=== PATIENT | male | born 1940 | race Caucasian/White ===

== ENCOUNTER 2018-02-08 17:11 | Inpatient (IN) | payer MEDICARE, OTHER ==
[~2018-02-08] VITALS: Ht 177.8 cm; Wt 74.8 kg
[2018-02-08 17:18] VITALS: BP 177/76
[2018-02-08] MEDS ORDERED: XANAX 0.25 MG0.25 MG PO (17:41)
[2018-02-08] MEDS ORDERED: CHLORTABS4 MG PO (17:43)
[2018-02-08] MEDS ORDERED: UNICOMPLEX M TA1 TA1 PO (17:43)
[2018-02-08 17:59] LABS: ABSOLUTE EOSINOPHILS 0.1 thou/uL (0.0-0.7); ABSOLUTE LYMPHOCYTES 0.6 thou/uL (0.8-5.3); ABSOLUTE MONOCYTES 0.4 thou/uL (0.0-1.2); ABSOLUTE NEUTROPHILS 3.4 thou/uL (1.6-8.1); BASOPHILS 0.6 %; EOSINOPHILS 3.2 %; HEMATOCRIT 26.2 % (42.0-52.0); HEMOGLOBIN 9.2 gm/dL (14.0-18.0); LYMPHOCYTES 12.5 %; MCH 33.2 pg (26.0-34.0); MCHC 35.3 g/dL (28.0-37.0); MCV 94.1 fL (80.0-100.0); NUCLEATED RBCS 0 /100WBC; PLATELET COUNT* 162 thou/uL (150-400); POLYS 74.7 %; RBC 2.79 mil/uL (4.50-6.00); RDW-CV 14.9 % (10.5-14.5); WBC 4.6 thou/uL (4.0-11.0)
[2018-02-08 18:07] LABS: ANION GAP 5 mmol/L (7-16); BUN 29 mg/dL (7-18); CALCIUM 9.2 mg/dL (8.5-10.1); CHLORIDE 106 mmol/L (98-107); CO2 28 mmol/L (21-32); CREATININE 1.1 mg/dL (0.6-1.3); GLUCOSE 104 mg/dL (70-99); POTASSIUM 4.5 mmol/L (3.5-5.1); SODIUM 139 mmol/L (136-145)
[2018-02-08 18:17] LABS: ALBUMIN 4.3 g/dL (3.4-5.0); ALKALINE PHOSPHATASE 64 U/L (46-116); SGOT 36 U/L (15-37); SGPT 28 U/L (30-65); TOTAL BILIRUBIN 2.9 mg/dL (<0.1-1.0); TOTAL PROTEIN 7.6 g/dL (6.4-8.2); TROPONIN-I LEVEL <0.06 ng/mL (<0.06)
[2018-02-08 20:12] VITALS: BP 162/72
[2018-02-08 20:30] VITALS: BP 162/73
[2018-02-08 23:00] LABS: URINE BILIRUBIN NEGATIVE (Negative); URINE BLOOD NEGATIVE (Negative); URINE CLARITY CLEAR; URINE COLOR YELLOW; URINE GLUCOSE-RANDOM NEGATIVE (Negative); URINE KETONES NEGATIVE (Negative); URINE LEUKOCYTES-REFLEX NEGATIVE (Negative); URINE NITRITE-REFLEX NEGATIVE (Negative); URINE PROTEIN NEGATIVE (Negative); URINE SPECIFIC GRAVITY 1.015 (1.005-1.030)
[2018-02-09] VITALS: BP 125/60
[2018-02-09 04:00] VITALS: BP 120/61
--- NOTE | 2018-02-09 04:33 | NUR ---
RECEIVED REPORT FROM ER NURSE, NADEEM, RN AT 1999. PT ARRIVED TO UNIT AT 2024. PT AAOX4, SPOUSE AT [facility], ORIENTED TO ROOM AND CALL LIGHT. INITIAL [facility] SCORE ZERO. PASSED BEDSIDE SWALLOW STUDY. SPOKE TO DR. OSEI AT 2130 IN REGARDS TO PATIENTS MRI/MRA ORDERS. OK TO DO IN AM PER DR. OSEI. PT VOICED NO CONERNS THIS SHIFT, FALL PRECAUTIONS IN PLACE, CALL LIGHT WITHIN REACH.
[2018-02-09 05:33] LABS: ALBUMIN 3.5 g/dL (3.4-5.0); ALKALINE PHOSPHATASE 51 U/L (46-116); BUN 26 mg/dL (7-18); CALCIUM 8.4 mg/dL (8.5-10.1); CHOLESTEROL 103 mg/dL (<200); CO2 26 mmol/L (21-32); CREATININE 1.2 mg/dL (0.6-1.3); GLUCOSE 88 mg/dL (70-99); HDL CHOLESTEROL 35 mg/dL (>40); LDL CHOLESTEROL 56 mg/dL (<100); LIPASE 265 U/L (73-393); SGOT 17 U/L (15-37); SGPT 25 U/L (30-65); TC:HDL 2.9 Ratio (Not establshd); TOTAL BILIRUBIN 2.1 mg/dL (<0.1-1.0); TOTAL PROTEIN 5.8 g/dL (6.4-8.2); TRIGLYCERIDE 60 mg/dL (<150); VLDL 12 mg/dL (<40)
[2018-02-09 06:30] LABS: ANION GAP 7 mmol/L (7-16); CHLORIDE 108 mmol/L (98-107); SERUM ASSESSMENT CLEAR; SODIUM 141 mmol/L (136-145)
[2018-02-09 08:00] VITALS: BP 137/69
--- NOTE | 2018-02-09 08:52 | NUR ---
ASSUMED PT CARE AT 0730, FULL ASSESMENT DONE CHARTED.PT A/O X4, HAS WEBSTER RATES IT AT 310. PT WAS GIVEN TYLENOL THIS AM. VSS, SR ON THE MONITOR. PT UP TO CHAIR FOR BREAKFAST, USES A WALKER TO AMBULATE. MRI ORDERED LAST NIGHT WILL FOLLOW UP IF MRI WILL BE TODAY. PT EDUCATED ON PLAN OF CARE.
[2018-02-09 11:30] VITALS: BP 137/71
--- NOTE | 2018-02-09 12:24 | EKG ---
[place] [address] ELECTROCARDIOGRAM REPORT Name: MARIA DEL CARMEN,HILARIA L Room: [address] ADM IN ..#: [id number] Admission: 02/08/18 Attend Phys: Margarita Albrecht Discharge: Date of : 42 Report #: [id number] THIS REPORT FOR: //name// [facility] ED Test Date: 2018-02-08 Test Time: 17:38:51 Pat Name: HILARIA JOYCE Department: Room: [facility] Gender: M Loader Machine: Jayden LYNN : 1940 Requested By: German James Order Number: [id number] MD: Jose Maria Caruso Measurements Intervals [place] Rate: 67 P: 62 PA: 142 QRS: 47 QRSD: 102 T: 65 QT: 412 QTc: 435 Interpretive Statements Sinus rhythm RSR' in V1 or V2, right VCD or RVH Compared to ECG 12/20/2008 19:01:15 Right ventricular hypertrophy now present RSR' in V1 or V2 now present Electronically Signed On 02-09-2018 12:24:21 CDT by Jose Maria Caruso [email or web address] <ELECTRONICALLY SIGNED> By: Jose Maria Caruso MD, FAC 02/09/18 1224 1738 1738 Jose Maria Caruso MD, FAC /EPI
[2018-02-09] MEDS ORDERED: ASPIR 8181 MG PO (16:12)
[2018-02-09] MEDS ORDERED: ASPIRIN325 PO (16:13)
[2018-02-09] MEDS ORDERED: LIPITOR10 MG PO (16:18)
[2018-02-09 16:21] VITALS: BP 137/71
[2018-02-09 16:46] VITALS: BP 137/71
--- NOTE | 2018-02-09 16:47 | NUR ---
CM SPOKE TO THE PATIENT TO DISCUSS HOME SITUATION, DISCHARGE PLANNNING, AND TO INFORM OF THE ROLE OF CM. PATIENT ALERT, ORIENTED, AND INDEPENDENT WITH ADL'S. PATIENT NORMALLY ACTIVE AND INDEPENDENT. PATIENT RESIDES AT HOME WITH SPOUSE AND SHE IS ABLE TO ASSIST NEEDED. PATIENT OWNS A WALKER AND CANE, BUT ONLY USED THE CANE FOR MOBILITY. PATIENT HAS NO HX OF HH OR SNF. CM WILL REMAIN AVIALABLE TO ASSIST AND FOLLOW NEEDED.
--- NOTE | 2018-02-09 16:50 | NUR ---
CM WAS INFORMED BY NURSING THAT THE PATIENT WOULD D/C WITH HH. CM SPOKE TO THE PATIENT TO DISCUSS CHOICE OF HH, AND HE CHOSE [facility]. CM CONTACTED [facility] AND SPOKE TO JAZLYN TO INFORM OF THE REFERRAL AND FAXED PATIENT CLINICAL INFO TO [facility]. CM WILL REMAIN AVAILABLE TO ASSIST AND FOLLOW.
[2018-02-10 02:05] LABS: GLYCOHEMOGLOBIN (HGB A1C) 4.6 % (4.8-5.6)
--- NOTE | 2018-02-19 17:26 | CON ---
[address] [address] CONSULTATION Name: HILARIA JOYCE Karrie Room: [address] IN M.R.#: [id number] Admission: 02/08/18 Attend Phys: Margarita Albrecht Discharge: 02/09/18 Date of : 42 Report #: [id number] THIS REPORT FOR: //name// CC: NAYAN physician/PCP Guillermo Brown DATE OF SERVICE: 02/09/2018 HISTORY OF PRESENT ILLNESS: This is a 77-year-old male patient who was evaluated by me for an episode of loss of vision in the left eye. It came spontaneously. There was no pain associated with this. The symptoms resolved spontaneously. He had another episode about 2-3 months ago, which was similar. He had a lens implant about 6 years ago in that eye and he thought it was because of that and he did not seek any medical attention. These symptoms happened spontaneously and there was no associated trauma. REVIEW OF SYSTEMS: Indicate that he has been diagnosed with ophthalmic migraine. He does have some headache. Headaches are in the occipital area. Those are longstanding headache. He has been diagnosed with migraine, but I am not certain whether it is real migraine or ophthalmic migraine. He does not have symptoms suggestive of temporal arteritis. He does have some baseline difficulty with walking, which has been attributed to his inner ear. He does have a history of anemia. He has seen a back end web developer and they indicated that anemia is of unknown origin. His bilirubin is high, but again that is also his baseline. His LDL is only 56, but his HDL is also only 35. Presently, he feels back to the baseline and wants to go home. He does not have any new cardiac, respiratory, GI, , musculoskeletal, constitutional, dermatological, hematological, psychiatric, throat, allergic, endocrine symptom associated with present symptomatology. He does have baseline ENT problems for which he had surgery. PAST MEDICAL HISTORY: Positive for this kind of episode. FAMILY HISTORY: Negative for early age stroke. SOCIAL HISTORY: He is . His was here and she provided a lot of history. The patient does not smoke or drink alcohol. PHYSICAL EXAMINATION: Indicates that this patient is alert. He is responsive. He can follow simple commands. His speech, concentration, fund of knowledge and memory is at his baseline. Cranial nerve examination 2-12 is unremarkable. I do not believe this patient has any papilledema and I was able to have a reasonable look at his retina and I do not see any abnormality on the left side. His strength, sensation, reflexes and tone is symmetrical. He has no cerebellar sign. There is no meningeal sign and there [place] [address] CONSULTATION Name: MARIA DEL CARMENHILARIA Karrie Room: [address] [place] M.R.#: [id number] Admission: 02/08/18 Attend Phys: Margarita Albrecht Discharge: 02/09/18 Date of : 42 Report #: [id number] He is a well-developed individual who does not have any dysmorphic features of eyes, ears and face. His pulses are palpable. He has no edema, cyanosis or jaundice. His vision and hearing looks adequate. He has no thyroid mass. His cardiac examination does not show any abnormality of the heart sound. His respiratory examination does show any respiratory difficulty or rhonchi on either side. His blood pressure is 137/69, respirations 18, pulse is 67, temperature is 98.4. LABORATORY DATA: Indicates anemia with a hemoglobin of 9.2 and he does have a total bilirubin of 2.1. He did have an MRI of the brain, MRA of the head and neck and those were reviewed. It showed mild changes on the left carotid. IMPRESSION: 1. Amaurosis fugax. 2. Possible mild stenosis of the left internal carotid artery. 3. Anemia, which is his baseline and he has already seen his back end web developer. 4. Increased bilirubin, which is also old. I do not know if he has a Gilbert syndrome and if he does, that will to be actually protective from atherosclerotic disease. 5. Somewhat low HDL. RECOMMENDATIONS: 1. Increase exercise. 2. If not contraindicated, start taking 81 mg aspirin daily. 3. Get a carotid Doppler done as an outpatient. 4. He needs an echocardiogram as an outpatient as it will not be done on the weekend here. 5. He also need an ophthalmology examination, which again needed to be done here because no sanforizer come here. I discussed all of it with the patient and discussed his options of staying here until Sunday or doing it as an outpatient and he will like to do it as an outpatient and all of it can be done as an outpatient from neurological perspective. He was instructed to come to Emergency Room if he has any more symptoms, but he should try to schedule all the other thing as an outpatient as soon as possible. <ELECTRONICALLY SIGNED> By: Alex Lo MD 02/19/18 1726 1057 [id number] Lo MD /nt
== END 2018-02-09 17:10 | disposition home or self-care (01) | DRG 68 ==
LOC: M.ERS 17:11 → M.TBA-ER 18:43 → M.2W 20:52
PROVIDERS: Emergency Medicine Emergency Medical Services; ADMIT Internal Medicine
DX: I65.29 Occlusion and stenosis of unspecified carotid artery (principal); F41.9 Anxiety disorder, unspecified; G43.909 Migraine, unspecified, not intractable, without status migrainosus; E80.6 Other disorders of bilirubin metabolism; D63.8 Anemia in other chronic diseases classified elsewhere; Z88.2 Allergy status to sulfonamides; Z88.8 Allergy status to other drugs, medicaments and biological substances; Z79.899 Other long term (current) drug therapy

== ENCOUNTER 2020-03-20 15:56 | Emergency (ER) | payer MEDICARE, OTHER ==
[~2020-03-20] VITALS: Ht 177.8 cm; Wt 70.3 kg
[~2020-03-20 15:56] MED LIST: ASPIR 8181 MG PO; ASPIRIN325 PO; CHLORTABS4 MG PO; LIPITOR10 MG PO; UNICOMPLEX M TA1 TA1 PO; XANAX 0.25 MG0.25 MG PO
[2020-03-20] MEDS ORDERED: NORVASC 2.5 MG2.5 M1 PO (16:10)
[2020-03-20] MEDS ORDERED: XANAX 0.25 MG0.25 MG PO (16:11)
[2020-03-20 16:29] LABS: ABSOLUTE EOSINOPHILS 0.2 thou/uL (0.0-0.7); ABSOLUTE LYMPHOCYTES 0.5 thou/uL (0.8-5.3); ABSOLUTE MONOCYTES 0.4 thou/uL (0.0-1.2); ABSOLUTE NEUTROPHILS 2.6 thou/uL (1.6-8.1); BASOPHILS 0.7 %; EOSINOPHILS 4.4 %; HEMATOCRIT 23.3 % (42.0-52.0); HEMOGLOBIN 8.3 gm/dL (14.0-18.0); LYMPHOCYTES 12.6 %; MCH 33.4 pg (26.0-34.0); MCHC 35.8 g/dL (28.0-37.0); MCV 93.2 fL (80.0-100.0); MONOCYTES 11.8 %; MPV 7.6 fl. (7.2-11.1); NUCLEATED RBCS 0 /100WBC; PLATELET COUNT* 127 thou/uL (150-400); POLYS 70.5 %; RDW-CV 14.7 % (10.5-14.5); WBC 3.7 thou/uL (4.0-11.0)
[2020-03-20 16:35] LABS: CALCIUM 8.5 mg/dL (8.5-10.1); CREATININE 1.4 mg/dL (0.6-1.3); POTASSIUM 4.2 mmol/L (3.5-5.1)
[2020-03-20 16:39] LABS: TOTAL BILIRUBIN 2.8 mg/dL (<0.1-1.0); TOTAL PROTEIN 6.9 g/dL (6.4-8.2)
[2020-03-20 17:24] VITALS: BP 131/70
== END 2020-03-20 17:25 | disposition home or self-care (01) ==
LOC: M.ERS 15:56
PROVIDERS: Physician Assistant
DX: S00.83XA Contusion of other part of head, initial encounter (principal); D64.9 Anemia, unspecified; E80.7 Disorder of bilirubin metabolism, unspecified; Z88.1 Allergy status to other antibiotic agents; Z88.2 Allergy status to sulfonamides; W01.0XXA Fall on same level from slipping, tripping and stumbling without subsequent striking against object, initial encounter; Y93.89 Activity, other specified; Y92.89 Other specified places as the place of occurrence of the external cause; Y99.8 Other external cause status